=== PATIENT | female | born 1980 | race Caucasian/White ===

== ENCOUNTER 2020-10-31 15:33 | Emergency (ER) | payer SELFPAY ==
[2020-10-31] MEDS ORDERED: Cephalexin 250 MG CAP ONE (15:50)
== END 2020-10-31 16:00 | disposition home or self-care (01) ==
LOC: BURERS 15:33
DX: L03.116 Cellulitis of left lower limb (principal); F17.210 Nicotine dependence, cigarettes, uncomplicated; Z71.6 Tobacco abuse counseling
CPT/HCPCS: 99406

== ENCOUNTER 2021-02-10 21:28 | Emergency (ER) | payer SELFPAY ==
[2021-02-10] MEDS ORDERED: predniSONE 20 MG TAB ONE (21:45)
[2021-02-10] MEDS ORDERED: Cephalexin 250 MG CAP ONE (21:45)
== END 2021-02-10 21:45 | disposition home or self-care (01) ==
LOC: BURERS 21:28
DX: L03.115 Cellulitis of right lower limb (principal); F17.210 Nicotine dependence, cigarettes, uncomplicated; Z79.899 Other long term (current) drug therapy
CPT/HCPCS: 99283; J7512

== ENCOUNTER 2021-02-19 09:56 | Emergency (ER) | payer SELFPAY | END 2021-02-19 10:48 | disposition home or self-care (01) | LOC: BURERS 09:56 | DX: L03.115 Cellulitis of right lower limb (principal); F17.210 Nicotine dependence, cigarettes, uncomplicated; G62.9 Polyneuropathy, unspecified | CPT/HCPCS: 99283 ==

== ENCOUNTER 2021-02-27 03:37 | Emergency (ER) | payer OTHER, SELFPAY ==
[2021-02-27] MEDS ORDERED: Famotidine 20 MG TAB ONE (03:54)
[2021-02-27] MEDS ORDERED: predniSONE 20 MG TAB ONE (03:54)
[2021-02-27] MEDS ORDERED: hydrOXYzine 25 MG TAB ONE (03:54)
== END 2021-02-27 04:42 | disposition home or self-care (01) ==
LOC: BURERS 03:37
DX: L50.9 Urticaria, unspecified (principal); F17.210 Nicotine dependence, cigarettes, uncomplicated
CPT/HCPCS: 99282; J7512

== ENCOUNTER 2021-02-27 23:21 | Emergency (ER) | payer OTHER ==
[2021-02-27] MEDS ORDERED: predniSONE 20 MG TAB ONE (23:54)
== END 2021-02-27 23:59 | disposition home or self-care (01) ==
LOC: BURERS 23:21
DX: L50.9 Urticaria, unspecified (principal); F17.210 Nicotine dependence, cigarettes, uncomplicated; G62.9 Polyneuropathy, unspecified; Z79.899 Other long term (current) drug therapy
CPT/HCPCS: 99282; J7512

== ENCOUNTER 2021-03-23 20:42 | Emergency (ER) | payer OTHER | END 2021-03-23 21:11 | disposition home or self-care (01) | LOC: BURERS 20:42 | DX: F41.9 Anxiety disorder, unspecified (principal); Z79.899 Other long term (current) drug therapy; F17.210 Nicotine dependence, cigarettes, uncomplicated | CPT/HCPCS: 99283 ==

== ENCOUNTER 2021-06-07 12:34 | Emergency (ER) | payer OTHER, SELFPAY ==
[2021-06-07] MEDS ORDERED: Sulfameth/Trimethoprim DS 800-160mg TAB ONE (13:22)
== END 2021-06-07 13:28 | disposition home or self-care (01) ==
LOC: BURERS 12:34
DX: L02.415 Cutaneous abscess of right lower limb (principal); F17.210 Nicotine dependence, cigarettes, uncomplicated
CPT/HCPCS: 10060

== ENCOUNTER 2021-06-09 09:49 | Emergency (ER) | payer SELFPAY | END 2021-06-09 10:15 | disposition home or self-care (01) | LOC: BURERS 09:49 | DX: Z48.817 Encounter for surgical aftercare following surgery on the skin and subcutaneous tissue (principal); F17.210 Nicotine dependence, cigarettes, uncomplicated | CPT/HCPCS: 99282 ==

== ENCOUNTER 2021-07-30 | Emergency (ER) | payer SELFPAY ==
[2021-07-30 00:38] LABS: Mean Corpuscular HGB CONC 31.2 g/dL (32.0-36.0); Mean Corpuscular Volume 70.4 fL (78.0-98.0); Mean Platelet Volume 6.6 fL (7.4-10.4); Platelet Count 319 thou/uL (130-400); RBC Distribution Width 18.5 % (11.5-14.5); Red Blood Cell (RBC) Count 5.01 mill/uL (4.20-5.40); White Blood Cell (WBC) Count 13.8 thou/uL (4.8-10.8)
[2021-07-30 00:43] LABS: BHCG - Serum Negative (NEGATIVE); Pregs Control Background? CLEAR/WHITE (CLR/WHITE); Pregs Control Bar Appear? YES (CONTROL BAR)
[2021-07-30 00:50] LABS: ALT (SGPT) 10 U/L (8-55); AST (SGOT) 17 U/L (5-34); Albumin 3.9 g/dL (3.5-5.0); Alkaline Phosphatase 44 U/L (40-110); Anion Gap 16 mmol/L (10-20); BUN (Urea Nitrogen) 12 mg/dL (7.0-18.7); Bilirubin, Total 0.5 mg/dL (0.2-1.2); Calc. Creatinine Clearance 0 mL/min (70-130); Carbon Dioxide 21 mmol/L (22-29); Chloride 106 mmol/L (98-107); Glucose 103 mg/dL (70-105); Protein, Total 6.9 g/dL (6.0-8.3); Sodium 139 mmol/L (136-145)
[2021-07-30 01:19] LABS: Eosinophils 2 % (0-10); Hypochromia SLIGHT = 6-15 cells (100X) (0-5/hpf); Lymphocytes 18 % (21-51); MDiff Complete? YES; Microcytosis SLIGHT = 6-15 cells (100X) (0-5/hpf); Monocytes 12 % (0-10); Neutrophil 68 % (42-75); Platelet Morphology Comment Appears Adequate
== END 2021-07-30 02:10 | disposition home or self-care (01) ==
LOC: BURERS
DX: R07.89 Other chest pain (principal); L03.113 Cellulitis of right upper limb; R00.0 Tachycardia, unspecified; F17.210 Nicotine dependence, cigarettes, uncomplicated
CPT/HCPCS: 71045; 80053; 84484; 84703; 85025; 93005

== ENCOUNTER 2021-09-17 17:56 | Emergency (ER) | payer SELFPAY ==
[2021-09-17] MEDS ORDERED: Acetaminophen 325 MG TAB ONE (19:02)
== END 2021-09-17 19:48 | disposition left against medical advice (07) ==
LOC: BURERS 17:56
DX: R51.9 Headache, unspecified (principal); F41.9 Anxiety disorder, unspecified; F15.10 Other stimulant abuse, uncomplicated; F31.9 Bipolar disorder, unspecified; F17.210 Nicotine dependence, cigarettes, uncomplicated
CPT/HCPCS: 99283

== ENCOUNTER 2021-12-21 11:56 | Emergency (ER) | payer SELFPAY | END 2021-12-21 13:18 | disposition home or self-care (01) | LOC: BURERS 11:56 | DX: B02.9 Zoster without complications (principal); F17.210 Nicotine dependence, cigarettes, uncomplicated | CPT/HCPCS: 99282 ==

== ENCOUNTER 2022-02-04 06:13 | Emergency (ER) | payer SELFPAY | END 2022-02-04 06:54 | disposition home or self-care (01) | LOC: BURERS 06:13 | DX: B02.9 Zoster without complications (principal); F17.210 Nicotine dependence, cigarettes, uncomplicated; Z79.899 Other long term (current) drug therapy | CPT/HCPCS: 99282 ==

== ENCOUNTER 2022-02-05 19:03 | Emergency (ER) | payer SELFPAY | END 2022-02-05 20:05 | disposition home or self-care (01) | LOC: BURERS 19:03 | DX: B02.9 Zoster without complications (principal); F17.210 Nicotine dependence, cigarettes, uncomplicated | CPT/HCPCS: 99282 ==

== ENCOUNTER 2022-02-09 15:59 | Emergency (ER) | payer SELFPAY | END 2022-02-09 17:30 | disposition home or self-care (01) | LOC: BURERS 15:59 | DX: G56.03 Carpal tunnel syndrome, bilateral upper limbs (principal); F17.210 Nicotine dependence, cigarettes, uncomplicated | CPT/HCPCS: 99283 ==

== ENCOUNTER 2022-03-01 23:04 | Emergency (ER) | payer SELFPAY | END 2022-03-02 00:08 | disposition home or self-care (01) | LOC: BURERS 23:04 | DX: S80.12XA Contusion of left lower leg, initial encounter (principal); Z79.899 Other long term (current) drug therapy; W19.XXXA Unspecified fall, initial encounter ==

== ENCOUNTER 2022-04-03 17:54 | Emergency (ER) | payer SELFPAY ==
[2022-04-03] MEDS ORDERED: Sulfameth/Trimethoprim DS 800-160mg TAB ONE (18:18)
[2022-04-03] MEDS ORDERED: Cephalexin 250 MG CAP ONE (18:18)
== END 2022-04-03 20:35 | disposition home or self-care (01) ==
LOC: BURERS 17:54
DX: L02.416 Cutaneous abscess of left lower limb (principal); F17.210 Nicotine dependence, cigarettes, uncomplicated
CPT/HCPCS: 99282

== ENCOUNTER 2022-05-15 19:19 | Emergency (ER) | payer SELFPAY ==
[2022-05-15] MEDS ORDERED: Ketorolac Tromethamine 30 MG/ML VIAL ONE (21:45)
[2022-05-15] MEDS ORDERED: Amoxicillin/Potassium Clav 875 MG TAB ONE (21:45)
== END 2022-05-15 22:07 | disposition home or self-care (01) ==
LOC: BURERS 19:19
DX: H60.92 Unspecified otitis externa, left ear (principal); H66.92 Otitis media, unspecified, left ear; F17.210 Nicotine dependence, cigarettes, uncomplicated
CPT/HCPCS: 96372; 99282; J1885

== ENCOUNTER 2022-10-09 18:32 | Emergency (ER) | payer SELFPAY | END 2022-10-09 19:43 | disposition home or self-care (01) | LOC: BURERS 18:32 | DX: J06.9 Acute upper respiratory infection, unspecified (principal); F17.210 Nicotine dependence, cigarettes, uncomplicated | CPT/HCPCS: 71046; 87804 ==

== ENCOUNTER 2023-12-26 10:45 | Emergency (ER) | payer MEDICAID, OTHER, SELFPAY ==
[2023-12-26] MEDS ORDERED: Dexamethasone 10 MG/ML VIAL ONE (11:09)
== END 2023-12-26 11:15 | disposition home or self-care (01) ==
LOC: BURERS 10:45
DX: J02.9 Acute pharyngitis, unspecified (principal); F17.210 Nicotine dependence, cigarettes, uncomplicated
CPT/HCPCS: 99282; J1100

== ENCOUNTER 2024-02-07 15:07 | Emergency (ER) | payer OTHER, SELFPAY ==
[2024-02-07] MEDS ORDERED: Ibuprofen 800 MG TAB ONE (15:19)
== END 2024-02-07 16:24 | disposition home or self-care (01) ==
LOC: BURERS 15:07
DX: S93.402A Sprain of unspecified ligament of left ankle, initial encounter (principal); F17.210 Nicotine dependence, cigarettes, uncomplicated; X50.1XXA Overexertion from prolonged static or awkward postures, initial encounter